=== PATIENT | male | born 1960 | race Two or more races ===

== ENCOUNTER 2019-07-14 06:38 | Emergency (ER) | payer OTHER ==
[~2019-07-14] VITALS: Ht 170.2 cm; Wt 71.2 kg
== END 2019-07-14 10:15 | disposition home or self-care (01) ==
LOC: ER 06:38
DX: S51.022A Laceration with foreign body of left elbow, initial encounter (principal); W45.8XXA Other foreign body or object entering through skin, initial encounter; Y93.89 Activity, other specified; Y92.89 Other specified places as the place of occurrence of the external cause; Y99.8 Other external cause status